=== PATIENT | male | born 1975 | race Caucasian/White ===

== ENCOUNTER 2022-12-30 23:09 | Emergency (ER) | payer OTHER ==
[2022-12-30] MEDS ORDERED: PROPARACAINE 0.5% OPHTH DROPS 15 ML RIGHTEYE STA (23:57)
--- NOTE | 2022-12-31 00:02 | ED Physician Documentation ---
PD HPI OPHTHO - Stated complaint Stated Complaint: R EYE INJ - Chief complaint Chief Complaint: Heent - History obtained from History obtained from: Patient - History of Present Illness Location: Right - Additional information Additional information: a few hours [employer], patient was struck by a branch of a blackberry clark, and he felt sudden sharp pain as if one of the thorns struck his right eye. Since that time, he has had constant right eye pain that has steadily worsened, progressing in intensity to the point of not being able to open the eye due to exacerbation of pain when he does so. He did not notice any change in vision after the injury (when he was still able to open the eye). He does not wear contact lenses, but he does use reading glasses. Review of Systems Eyes: reports: Photophobia, Irritation. denies: Loss of vision PD PAST MEDICAL HISTORY - Past Medical History Past Medical History: Yes Cardiovascular: Hypertension, Other - Past Surgical History General: Appendectomy - Present Medications Home Medications: Ambulatory Orders Medication Instructions Recorded Confirmed oxyCODONE/ACET 5/325 [Percocet 5 1 - 2 each PO Q6H PRN #20 tablet 12/31/22 mg/325 mg] - Allergies Allergies/Adverse Reactions: Allergies Allergy/AdvReac Type Severity Reaction Status Date / Time No Known Drug Allergies Allergy Verified 12/30/22 23:13 - Social History Does the pt smoke?: No Smoking Status: Never smoker Does the pt drink ETOH?: No Does the pt have substance abuse?: No - POLST Patient has POLST: No PD ED PE NORMAL - Vitals Vital signs reviewed: Yes - General General: Alert and oriented X 3, Well developed/nourished, Other (appears uncomfortable, maintains right eye closed due to photophobia) - HEENT HEENT: PERRL, EOMI, Other (no facial lesions (no abrasions, lacerations)) PD ED PE EXPANDED - HEENT HEENT Visual: 1 - deformity (linear fluorescein uptake) 2 - deformity (fluorescein uptake) 3 - deformity (fluorescein uptake) - Eyes Eyes: Normal eyelids, Injected conj/sclera (mildly injected right conjunctiva), Fluorescein uptake, Other (one drop of proparacaine is instilled into right eye. He had rapid , complete analgesia allowing for exam. see "HEENT" section, above). No: Conj/sclera FB, Subconj hemorrhage, Corneal FB Results - Vitals Vitals: Oxygen O2 Source Room air PD Medical Decision Making - ED course Complexity details: considered differential, d/w patient ED course: After instillation of one drop of proparacaine to right eye, fluorescein then instilled to lower lid of right eye. Unfortunately, after much searching by me, ED RN, and shipping technician, the Wood's lamp could not be located and thus I used the slit lamp (which has a fluorescent light function). This revealed the corneal abrasions as noted above. Note that the linear abrasion labeled 2 persisted even with having patient blink, as well as with trying to wipe the area with a sterile q-tip (while patient was still numb with proparacaine). This was too ensure these findings were not quality assurance representative of a positive Enrrique's test. Given that none of the material (fluorescein) had flow to it and that it did not wipe away with pressure / sterile cotton swab, this pattern is consistent with the injury (including a fortunately shallow groove in the cornea as diagrammed likely due to the tip of a blackberry thorn), and not a positive Enrrique's test. He is given polytrim drops for wound prophylaxis (in ED with first drop here, remainder to go with instructions on use), and percocet rx and take-home pack. Encouraged to pursue outpatient follow up , ideally with ophthalmology. I am prescribing a short course of short-acting opioid pain medication for this patient. I have reviewed the patients [employer] SALESPERSON and no concerning findings were noted. I have discussed that the opioids are for short term therapy only, and will not be refilled from the ED. Departure - Departure Disposition: 01 Home, Self Care Clinical Impression: Corneal abrasion, right Qualifiers: Encounter type: initial encounter Qualified Code(s): S05.01XA - Injury of conjunctiva and corneal abrasion without foreign body, right eye, initial encounter Condition: Good Instructions: ED Eye Injury Corneal Abrasion Follow-Up: Ismael Whyte MD [Provider Admit Priv/Credential] - Prescriptions: oxyCODONE/ACET 5/325 [Percocet 5 mg/325 mg] 1 - 2 each PO Q6H PRN #20 tablet PRN Reason: Pain >8 Comments: On tonight's exam, you have a large corneal abrasion of the right eye. Fortunately, there is no evidence of any perforation of the globe of the eye itself. Furthermore, most corneal abrasions, even larger ones such as yours, will heal without any problems aside from the typical pain over the first few days. A prescription for pain medication (Percocet) has been electronically submitted to the [facility] pharmacy in [place]. Use the provided antibiotic drops as follows: 1 drop in the right eye 3 times per day for 5 days. This is prescribed to prevent the abrasion from getting infected. As we discussed, I would recommend you follow-up by the end of this week with either your primary care provider or, ideally, an animal shelter supervisor. I have provided the information for one of the local ophthalmologists elsewhere on these discharge sheets. However, as you are not established with this, nor any, local ophthalmologists, you might need a referral from your primary care provider. You can contact the animal shelter supervisor office tomorrow morning when they open and ask them if you can be seen by Dr. Whyte or if you would need a referral. Since you do not have a primary care provider yet, I would recommend the neck step would be to call your insurance provider and ask them how to go about the referral process. I am prescribing a short course of narcotic pain medication for you. These are potentially dangerous and addictive medications that should be used carefully. These medications may constipate you. Take an [id number]-rba-[id number] stool softener (docusate) twice daily with plenty of water while taking these medications. If you go 24 hours without a bowel movement, take [id number] miralax, per package instructions. Do not drink or drive while taking these medications. If you received narcotic or sedating medications while in the emergency department, do not drive for 24 hours. Store this medication in a safe, secure place and out of reach of children. It is a violation of federal law to give or sell this medication to another person or to use in a manner other than prescribed. The ED will not refill narcotic prescriptions, including prescriptions lost or stolen. To dispose of unwanted medications: 1. [facility] at [address] in [place] has a medication drop box. They accept prescription medications (in pill form) Saturday through Saturday 9:00 a.m. to 5:00 p.m. 2. [facility] accepts prescription medications (in pill form only) for disposal year round. Call for more information. 3. Contact the [facility] for the next [employer] sponsored prescription drug collection event. , [phone], or [phone]; Discharge Date/Time: 12/31/22 01:03
[2022-12-31] MEDS ORDERED: oxyCODONE/ACET 5/325 Prepack 4 PO STA (00:45)
[2022-12-31] MEDS ORDERED: POLYMYXIN B/TRIMETH OPHTH DROPS RIGHTEYE STA (00:46)
[2022-12-31 01:04] VITALS: BP 130/80
== END 2022-12-31 01:03 | disposition home or self-care (01) ==
LOC: ED 23:09
DX: S05.01XA Injury of conjunctiva and corneal abrasion without foreign body, right eye, initial encounter (principal); W22.8XXA Striking against or struck by other objects, initial encounter; I10 Essential (primary) hypertension
CPT/HCPCS: 99282; 99283; A9270; J3490

== ENCOUNTER 2023-03-04 08:00 | Outpatient (CLI) | payer OTHER ==
--- NOTE | 2023-03-04 12:51 | XRAY Report ---
PROCEDURE: Ankle 3 View LT INDICATIONS: LEFT ANKLE PAIN TECHNIQUE: 3 views of the ankle were acquired. COMPARISON: None. FINDINGS: Bones: No fractures or dislocations. Ankle mortise is normally aligned. No suspicious bony lesions . Soft tissues: No tibiotalar joint effusion. Achilles tendon appears normal. IMPRESSION: No visualized acute fracture or dislocation. However, occult injury cannot be excluded. Recommend marleni rt interval imaging follow-up in 7-10 days as clinically indicated for additional evaluation. Reviewed by: Donna Mcfadden MD on 03/04/2023 12:50 PM PDT Approved by: Donna Mcfadden MD on 03/04/2023 12:50 PM PDT Station ID: [id number]
--- NOTE | 2023-03-04 12:51 | XRAY Report ---
PROCEDURE: Foot 3 View LT INDICATIONS: CONTUSION OF LEFT FOOT TECHNIQUE: 3 views of the foot were acquired. COMPARISON: X-ray ankle 03/04/2023 FINDINGS: Bones: No fractures or dislocations. No suspicious bony lesions. Soft tissues: No suspicious soft tissue calcifications or masses. IMPRESSION: No visualized acute fracture or dislocation. However, occult injury cannot be excluded. Recommend marleni rt interval imaging follow-up in 7-10 days as clinically indicated for additional evaluation. Reviewed by: Donna Mcfadden MD on 03/04/2023 12:50 PM PDT Approved by: Donna Mcfadden MD on 03/04/2023 12:50 PM PDT Station ID: [id number]
== END 2023-03-04 23:59 | disposition home or self-care (01) ==
LOC: DI.S 08:00
PROVIDERS: ATTEND Registered Nurse
DX: M25.572 Pain in left ankle and joints of left foot (principal); S90.32XA Contusion of left foot, initial encounter